=== PATIENT | male | born 1935 | race Caucasian/White ===

== ENCOUNTER 2016-10-23 14:13 | Emergency (ER) | payer MEDICARE, OTHER ==
[~2016-10-23] VITALS: Ht 180.3 cm; Wt 90.7 kg
[~2016-10-23 14:13] MED LIST: HYDROCHLOROTHIA25 MG PO; LISINOPRIL40 MG PO; METFORMIN HCL500 M1 PO; NORCO 5-325 TA1 EACH PO; PIOGLITAZONE HC45 MG PO; SIMVASTATIN80 MG PO
== END 2016-10-23 14:25 | disposition home or self-care (01) ==
LOC: ED 14:13
DX: L08.9 Local infection of the skin and subcutaneous tissue, unspecified (principal); Z00.8 Encounter for other general examination

== ENCOUNTER 2017-01-06 20:07 | Emergency (ER) | payer MEDICARE, OTHER ==
[~2017-01-06] VITALS: Ht 180.3 cm; Wt 90.7 kg
== END 2017-01-06 22:17 | disposition home or self-care (01) ==
LOC: ED 20:07
DX: S06.0X1A Concussion with loss of consciousness of 30 minutes or less, initial encounter (principal); S00.01XA Abrasion of scalp, initial encounter; E11.9 Type 2 diabetes mellitus without complications; I10 Essential (primary) hypertension; H91.90 Unspecified hearing loss, unspecified ear; Z85.038 Personal history of other malignant neoplasm of large intestine; Z90.49 Acquired absence of other specified parts of digestive tract; Z79.899 Other long term (current) drug therapy; Z79.84 Long term (current) use of oral hypoglycemic drugs; Z88.5 Allergy status to narcotic agent; Z98.890 Other specified postprocedural states; W01.198A Fall on same level from slipping, tripping and stumbling with subsequent striking against other object, initial encounter
CPT/HCPCS: 70450; 99284

== ENCOUNTER 2017-03-31 14:56 | Emergency (ER) | payer MEDICARE, OTHER ==
[~2017-03-31] VITALS: Ht 180.3 cm; Wt 90.7 kg
[2017-03-31] MEDS ORDERED: ACTOS45 MG PO (15:12)
--- NOTE | 2017-04-01 17:53 | EKG ---
[facility] [address] [place] [address] Signed Undetermined rhythm Likely Sinus rhythm with Second Degree Heart Block, Type 1 Minimal voltage criteria for LVH, may be normal variant Borderline ECG No previous ECGs available Confirmed by YINA ACOSTA MD ([id number]) on 04/01/2017 5:53:46 PM Electronically Signed By: YINA ACOSTA MD 04/01/17 1753 PATIENT NAME: MATTHEWYAELASAEL Electrocardiogram DATE OF : 35 PHYSICIAN: YINA ACOSTA MD REPORT #: [id number] REPORT IS CONFIDENTIAL AND NOT TO BE RELEASED WITHOUT AUTHORIZATION
--- NOTE | 2017-04-01 17:58 | EKG ---
[facility] [address] [facility] [place] [address] Signed Sinus rhythm with Second Degree Heart Block, Type 1 Otherwise normal ECG Confirmed by YINA ACOSTA MD ([id number]) on 04/01/2017 5:57:50 PM Electronically Signed By: YINA ACOSTA MD 04/01/17 1758 PATIENT NAME: ASAEL AMANDA Electrocardiogram DATE OF : 35 PHYSICIAN: YINA ACOSTA MD REPORT #: [id number] REPORT IS CONFIDENTIAL AND NOT TO BE RELEASED WITHOUT AUTHORIZATION
== END 2017-03-31 18:26 | disposition home or self-care (01) ==
LOC: ED 14:56
DX: E86.0 Dehydration (principal); R00.2 Palpitations; E11.9 Type 2 diabetes mellitus without complications; I10 Essential (primary) hypertension; Z87.891 Personal history of nicotine dependence; Z88.5 Allergy status to narcotic agent; Z79.899 Other long term (current) drug therapy; Z79.84 Long term (current) use of oral hypoglycemic drugs
CPT/HCPCS: 71045; 80053; 83880; 84484; 85025; 93005; 93010; 96360; 99284; J7030

== ENCOUNTER 2018-02-27 06:50 | Day surgery (SDC) | payer MEDICARE, OTHER ==
[~2018-02-27] VITALS: Ht 180.3 cm; Wt 85.3 kg
[~2018-02-27 06:50] MED LIST changes: +ACTOS45 MG PO
--- NOTE | 2018-02-27 10:00 | NUR ---
02/27/18 [address],[place] 0947 PT ARRIVED WITH ORAL AIRWAY IN PLACE AND O2 MASK AT 10L. RESP EVEN AND UNLABORED. BP INCREASED AND DESIGN ENGINEERING MANAGER AT BEDSIDE TO MONITOR. 0948 O2 DECREASED TO 6L. 0954 PT WOKE TO TACTILE STIMULI AND ORAL AIRWAY REMOVED. PT REORIENTED TO PACU. PT DENIES NAUSEA AND PAIN. 1000 PT ENCOURAGED TO PASS GAS/AIR AND EDUCATION GIVEN ABOUT AIR/TITA.
--- NOTE | 2018-02-28 15:04 | OR ---
[facility] [address] [place], [place] [address] Signed DATE OF OPERATION: 02/27/2018 SURGEON: Maciel Dunn MD PREOPERATIVE DIAGNOSES: 1. History of low anterior resection 2008, for colon cancer. 2. Diminutive polyps x2, 2013. POSTOPERATIVE DIAGNOSES: 1. Scattered diverticula. 2. Polyps x2. PROCEDURE: Total colonoscopy to cecum with snare polypectomy x1 and cold morcellation polypectomy x1. ANESTHESIA: Intravenous sedation with propofol infusion. ANESTHESIOLOGIST: Maciel Sauer CRNA. INDICATION: This 82-year-old white man is a patient of Dr. Roblero and known to me from the past. 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 Surveillance colonoscopy has been undertaken since that time. His last colonoscopy was in 2013, five years ago showing two diminutive polyps. He is here at this time for surveillance colonoscopy. He is symptom free. He understands the risks of bleeding, infection, and perforation, wished to proceed. FINDINGS: The prep was good. Complete colonoscopy was undertaken to the cecum. The anastomosis was widely patent. Diffuse silk sutures were noted from anastomotic intervention in the past. He had a few scattered diverticula. He had two small sessile polyps, both were excised completely, one with cold morcellation technique another with cold snare technique. DESCRIPTION OF PROCEDURE: The patient was brought to the endoscopy suite and placed in lateral decubitus position, given intravenous sedation to the point of slurred speech and nystagmus. Digital rectal Electronically Signed By: MACIEL DUNN MD 02/28/18 1504 PATIENT NAME: ASAEL AMANDA OPERATIVE REPORT DATE OF : 35 REPORT #: [id number] PHYSICIAN: MACIEL DUNN MD PCP: TOÑA ROBLERO MD REPORT IS CONFIDENTIAL AND NOT TO BE RELEASED WITHOUT AUTHORIZATION [facility] [address] [place], [place] [address] Signed examination was normal. An Olympus video colonoscope was passed in the rectum and manipulated throughout the colon ultimately intubating the cecum itself. The ileocecal valve and appendiceal orifice were normal. The scope was withdrawn from that point and examination undertaken showing a small sessile polyp in the transverse colon at about 90 cm. This was excised with cold morcellation technique. The scope was further withdrawn. Another polyp was noted about 70 cm corresponding to the remaining left colon. This was excised with cold snare technique without problem. Complete excision was accomplished. There were a few scattered diverticula noted as well. Withdrawal of scope to the anastomosis showed it to be widely patent without sign of stricture or other abnormality. Retroflexed view in the rectum was normal. Scope was removed. The patient was taken to recovery room in good condition. CONCLUDING DIAGNOSIS: 1. Polyps x2. 2. Diverticulosis. PLAN: Recommend repeat colonoscopy in 5 years if clinically appropriate at his advanced age of 87 years at that time, sooner of course if problems. MD TYLER Moreno/ANILA /[id number] cc: Toña Roblero MD Copies: TOÑA ROBLERO MD ~ Electronically Signed By: MACIEL DUNN MD 02/28/18 1504 PATIENT NAME: ASAEL AMANDA OPERATIVE REPORT DATE OF : 35 REPORT #: [id number] PHYSICIAN: MACIEL DUNN MD PCP: TOÑA ROBLERO MD REPORT IS CONFIDENTIAL AND NOT TO BE RELEASED WITHOUT AUTHORIZATION
== END 2018-02-27 10:34 | disposition home or self-care (01) ==
LOC: OPS 06:50 → DS 06:50 → OPS 08:45 → DS 12:00 → OPS 12:00
PROVIDERS: Surgery
PROC: 0DBE8ZX Excision of Large Intestine, Via Natural or Artificial Opening Endoscopic, Diagnostic (ICD-10-PCS; 2018-02-27)
PROC: 0DBE8ZX Excision of Large Intestine, Via Natural or Artificial Opening Endoscopic, Diagnostic (ICD-10-PCS; principal; 2018-02-27 08:45)
DX: Z12.11 Encounter for screening for malignant neoplasm of colon (principal); D12.6 Benign neoplasm of colon, unspecified; E11.9 Type 2 diabetes mellitus without complications; I10 Essential (primary) hypertension; E78.00 Pure hypercholesterolemia, unspecified; D64.9 Anemia, unspecified; I35.0 Nonrheumatic aortic (valve) stenosis; Z79.899 Other long term (current) drug therapy; Z98.890 Other specified postprocedural states; Z85.038 Personal history of other malignant neoplasm of large intestine
CPT/HCPCS: 88305; J1100; J1885; J2250; J2405; J2704; J2765; J3010; J7120

== ENCOUNTER 2018-11-09 12:22 | Emergency (ER) | payer MEDICARE, OTHER ==
[~2018-11-09] VITALS: Ht 180.3 cm; Wt 85.3 kg
== END 2018-11-09 12:51 | disposition home or self-care (01) ==
LOC: ED 12:22
DX: L98.9 Disorder of the skin and subcutaneous tissue, unspecified (principal)

== ENCOUNTER 2021-02-04 08:02 | Emergency (ER) | payer MEDICARE, OTHER ==
[~2021-02-04] VITALS: Ht 180.3 cm; Wt 85.3 kg
--- OUTSIDE RECORDS SUMMARY | 2021-02-04 08:06 | XMS ---
PreManage Notification: ASAEL AMANDA Security Power Originator Events No recent Security Events currently on file CRITERIA MET - ED - Positive COVID-19 Lab Result - [facility] TOÑA IRBY [facility] 01/01/2018-Current PHONE: Unknown Stef has no Care Guidelines for this patient. E.DBruno VISIT COUNT (12 MO.) 1 FRANK Lara TOTAL 1 NOTE: Visits indicate total known visits. ED/UCC VISIT TRACKING (12 MO.) 02/04/2021 08:03 FRANK Titus OR TYPE: Emergency COMPLAINT: - VOMITING INPATIENT VISIT TRACKING (12 MO.) No inpatient visits to display in this time frame [email or web address]
[2021-02-04] MEDS ORDERED: BAYER CHEWABLE81 MG PO (08:19)
[2021-02-04] MEDS ORDERED: PIOGLITAZONE HC30 MG PO (08:20)
[2021-02-04] MEDS ORDERED: SERTRALINE HCL50 MG PO (08:49)
[2021-02-04] MEDS ORDERED: METFORMIN HCL1000 MG PO (08:51)
[2021-02-04] MEDS ORDERED: SIMVASTATIN20 MG PO (08:51)
[2021-02-04] MEDS ORDERED: ONDANSETRON ODT8 MG PO (09:06)
== END 2021-02-04 12:18 | disposition home or self-care (01) ==
LOC: ED 08:02
DX: F03.90 Unspecified dementia, unspecified severity, without behavioral disturbance, psychotic disturbance, mood disturbance, and anxiety (principal); E11.9 Type 2 diabetes mellitus without complications; I10 Essential (primary) hypertension; Z87.891 Personal history of nicotine dependence; Z88.5 Allergy status to narcotic agent; Z79.899 Other long term (current) drug therapy; Z79.84 Long term (current) use of oral hypoglycemic drugs; Z79.82 Long term (current) use of aspirin
CPT/HCPCS: 99284